=== PATIENT | male | born 1985 | race African-American/Black ===

== ENCOUNTER 2022-12-05 12:53 | Inpatient (IN) | payer MEDICAID, OTHER ==
[~2022-12-05] VITALS: Ht 175.3 cm; Wt 60.0 kg
[2022-12-05 13:53] LABS: Basophils # (auto) 0 10 ^3/uL (0-0.2); Basophils % (auto) 0.3 % (0.0-2.0); Eosinophils # (auto) 0 10 ^3/uL (0-0.8); Eosinophils % (auto) 0.1 % (0.0-7.0); Hematocrit 43.6 % (41.0-53.0); Hemoglobin 14.3 g/dL (13.5-17.5); Lymphocytes # (auto) 0.5 10 ^3/uL (0.4-5.4); Lymphocytes % (auto) 4.1 % (10.0-50.0); Mean Corpuscular Hemoglobin 29.2 pg (28.0-32.0); Mean Corpuscular Hgb Conc. 32.9 g/dL (32.0-36.0); Mean Corpuscular Volume 88.6 fL (80.0-100.0); Monocytes # (auto) 0.5 10 ^3/uL (0-1.3); Monocytes % (auto) 4.2 % (0.0-12.0); Neutrophils # (auto) 10.9 10 ^3/uL (1.6-8.6); Neutrophils % (auto) 91.3 % (37.0-80.0); Red Blood Cells 4.92 10^6/uL (4.5-5.90); Red Cell Distribution Width 13.1 % (11.8-14.3); White Blood Cell 11.9 10^3/uL (4.4-10.8)
[2022-12-05 14:12] LABS: Albumin 4.1 g/dL (3.4-5.0); BUN/Creatinine Ratio 9.7 (10.0-20.0); Calcium 9.4 mg/dL (8.5-10.1); Potassium 3.8 mmol/L (3.5-5.1)
[2022-12-05 14:16] LABS: Bilirubin, Total 0.7 mg/dL (0.2-1.0); Total Protein 7.9 g/dL (6.4-8.2)
[2022-12-05] MEDS ORDERED: ONDANSETRON HCL 4 MG/2 ML VIAL IV ONE (14:30)
[2022-12-05] MEDS ORDERED: SODIUM CHLORIDE 0.9% 1,000 ML IV ONE ×2 (14:30→17:15)
[2022-12-05] MEDS ORDERED: KETOROLAC TROMETH 30 MG/ML 1ML VIAL IV ONE (15:30)
[2022-12-05] MEDS ORDERED: PROMETHAZINE HCL 25 MG/ML 1ML IV PRN (15:30)
[2022-12-05] MEDS ORDERED: SODIUM CHLORIDE 0.9% 1,000 ML IVB ONE (17:15)
[2022-12-05 17:16] LABS: Urine Clarity Clear (Clear); Urine Color Yellow (Yellow)
[2022-12-05 17:17] LABS: Urine Bacteria NONE SEEN /hpf (None Seen); Urine Blood Negative /uL (Negative); Urine Mucus FEW (None Seen); Urine Protein, UAD 1+ (Negative); Urine Specific Gravity 1.022 (1.001-1.035); Urine Urobilinogen Normal (Negative); Urine WBC <1 /hpf (0 - 3)
[2022-12-05 17:26] LABS: Alcohol, Urine < 3.0 mg/dL (0-10); Amphetamine Screen, Urine NEGATIVE (NEGATIVE); Barbiturate Scree,Urine NEGATIVE (NEGATIVE); Benzodiazephine Screen, Urine NEGATIVE (NEGATIVE); Cannabinoid Screen, Urine NEGATIVE (NEGATIVE); Cocaine Screen, Urine NEGATIVE (NEGATIVE); Opiate Scree,Urine NEGATIVE (NEGATIVE); Phencyclidine Screen, Urine NEGATIVE (NEGATIVE)
[2022-12-05] MEDS ORDERED: LACTATED RINGER'S 1,000 ML IV ONE (18:15)
[2022-12-05] MEDS ORDERED: DOCUSATE SOD 100 MG CAP PO PRN (18:15)
[2022-12-05] MEDS ORDERED: ACETAMINOPHEN 325 MG TAB PO PRN (18:15)
[2022-12-05] MEDS ORDERED: ONDANSETRON HCL 4 MG/2 ML VIAL IV PRN (18:15)
[2022-12-05] MEDS: SODIUM CHLOR 0.9% PF (SALINE LOCK) 10ML VIAL/SYR IV SCH (22:00)
[2022-12-05] MEDS: HYDROcodone-ACET 5/325MG TAB PO PRN (23:29)
[2022-12-06] MEDS: SODIUM CHLOR 0.9% PF (SALINE LOCK) 10ML VIAL/SYR IV SCH ×3 (05:38→22:16)
[2022-12-06] MEDS: ENOXAPARIN SOD 40 MG/0.4 ML SYRINGE SC SCH (10:12)
[2022-12-06 11:15] VITALS: PULSE 67; RESP 15; O2SAT 97
[2022-12-06 11:23] LABS: Basophils # (auto) 0 10 ^3/uL (0-0.2); Basophils % (auto) 0.3 % (0.0-2.0); Eosinophils # (auto) 0.3 10 ^3/uL (0-0.8); Eosinophils % (auto) 3.4 % (0.0-7.0); Hematocrit 39.8 % (41.0-53.0); Hemoglobin 13.3 g/dL (13.5-17.5); Lymphocytes # (auto) 0.7 10 ^3/uL (0.4-5.4); Mean Corpuscular Hemoglobin 29.6 pg (28.0-32.0); Mean Corpuscular Hgb Conc. 33.4 g/dL (32.0-36.0); Mean Corpuscular Volume 88.7 fL (80.0-100.0); Monocytes # (auto) 0.6 10 ^3/uL (0-1.3); Monocytes % (auto) 7.1 % (0.0-12.0); Neutrophils # (auto) 7.3 10 ^3/uL (1.6-8.6); Neutrophils % (auto) 81.2 % (37.0-80.0); Nucleated Red Blood Cells % 0.1 %; Red Blood Cells 4.49 10^6/uL (4.5-5.90); Red Cell Distribution Width 13.2 % (11.8-14.3)
[2022-12-06 11:39] LABS: Calcium 9.2 mg/dL (8.5-10.1); Potassium 3.7 mmol/L (3.5-5.1)
[2022-12-06 11:55] LABS: Albumin 3.7 g/dL (3.4-5.0); BUN/Creatinine Ratio 11.1 (10.0-20.0); Bilirubin, Total 0.7 mg/dL (0.2-1.0); Total Protein 6.9 g/dL (6.4-8.2)
[2022-12-06] MEDS: HYDROcodone-ACET 5/325MG TAB PO PRN ×3 (12:20→22:16)
[2022-12-06] MEDS: SODIUM CHLORIDE 0.9% 1,000 ML IV SCH ×2 (12:20→22:16)
[2022-12-06 17:42] VITALS: BP 129/84; PULSE 79; RESP 15; TEMP 98.1; O2SAT 96
[2022-12-06 20:00] VITALS: PULSE 78
[2022-12-06 22:00] VITALS: BP 136/89; PULSE 80; RESP 18; TEMP 98; O2SAT 99
[2022-12-07 05:00] VITALS: BP 139/89; PULSE 80; RESP 18; TEMP 97.7; O2SAT 95
[2022-12-07] MEDS: HYDROcodone-ACET 5/325MG TAB PO PRN (05:15)
[2022-12-07] MEDS: SODIUM CHLOR 0.9% PF (SALINE LOCK) 10ML VIAL/SYR IV SCH ×2 (05:16→14:43)
[2022-12-07 05:48] LABS: Basophils # (auto) 0 10 ^3/uL (0-0.2); Basophils % (auto) 0.4 % (0.0-2.0); Eosinophils # (auto) 0.5 10 ^3/uL (0-0.8); Eosinophils % (auto) 7.1 % (0.0-7.0); Hematocrit 35.2 % (41.0-53.0); Hemoglobin 11.6 g/dL (13.5-17.5); Lymphocytes % (auto) 15.2 % (10.0-50.0); Mean Corpuscular Hemoglobin 29.4 pg (28.0-32.0); Mean Corpuscular Hgb Conc. 32.9 g/dL (32.0-36.0); Mean Corpuscular Volume 89.1 fL (80.0-100.0); Monocytes # (auto) 0.7 10 ^3/uL (0-1.3); Monocytes % (auto) 10.1 % (0.0-12.0); Neutrophils # (auto) 4.4 10 ^3/uL (1.6-8.6); Neutrophils % (auto) 67.2 % (37.0-80.0); Nucleated Red Blood Cells % 0.1 %; Red Blood Cells 3.94 10^6/uL (4.5-5.90); White Blood Cell 6.5 10^3/uL (4.4-10.8)
[2022-12-07 06:09] LABS: Calcium 8.2 mg/dL (8.7-10.4); Potassium 3.3 mmol/L (3.5-5.1)
[2022-12-07 06:12] LABS: BUN/Creatinine Ratio 6.8 (10.0-20.0)
[2022-12-07] MEDS ORDERED: POTASSIUM EFFERVESENT TAB 25 MEQ GT ONE (07:30)
[2022-12-07 08:00] VITALS: PULSE 78
[2022-12-07] MEDS ORDERED: POTASSIUM EFFERVESENT TAB 25 MEQ PO ONE (08:15)
[2022-12-07 08:30] VITALS: PULSE 69; RESP 18; O2SAT 96
[2022-12-07] MEDS: SODIUM CHLORIDE 0.9% 1,000 ML IV SCH (08:54)
[2022-12-07] MEDS: ENOXAPARIN SOD 40 MG/0.4 ML SYRINGE SC SCH (08:54)
[2022-12-07 09:00] VITALS: BP 119/71; PULSE 69; RESP 18; TEMP 98.6; O2SAT 96
[2022-12-07 13:00] VITALS: BP 123/63; PULSE 77; RESP 18; TEMP 97.2; O2SAT 97
[2022-12-07 15:13] VITALS: TEMP 36.2
== END 2022-12-07 15:50 | disposition home or self-care (01) | DRG 282 ==
LOC: ER 12:53 → TELE 18:32 → TELE-CENTR 12-06 17:18
PROVIDERS: ADMIT Internal Medicine Pulmonary Disease; ATTEND Internal Medicine
DX: K85.90 Acute pancreatitis without necrosis or infection, unspecified (principal); F10.10 Alcohol abuse, uncomplicated; Y90.9 Presence of alcohol in blood, level not specified
CPT/HCPCS: 36415; 71046; 74176; 80048; 80053; 80061; 80307; 81001; 83690; 83735; 85025; 93005; G0378; J1885; J2405